=== PATIENT | male | born 1995 | race Caucasian/White ===

== ENCOUNTER → 2018-01-17 | Outpatient (CLI) | payer BC ==
--- NOTE | 2018-01-17 18:46 | DIAGNOSTIC IMAGING REPORT ---
MRI OF THE LEFT KNEE CLINICAL HISTORY: Left knee pain. Skiing injury. COMPARISON STUDY: MRI of the left knee dated 09/24/2011. TECHNIQUE: MRI of the left knee was performed utilizing proton density, T1, and T2-weighted sequences in the axial, sagittal, coronal planes. IV contrast was not administered for this examination. Note that interpretation is suboptimal without plain film correlate. FINDINGS: Menisci: There is linear signal within the posterior horn of the medial meniscus, best seen on sagittal image #5. This is clearly reach the articular surface and may represent intrasubstance tearing versus mucoid degeneration. The lateral meniscus is intact. Ligaments: There has been rupture of the anterior cruciate ligament. The posterior cruciate ligament is intact. There is a grade 2 injury of the medial collateral ligament. Fluid is seen on both sides of the ligament. The lateral collateral ligament complex appears preserved. Extensor mechanism: The extensor mechanism is intact. Hoffa's fat pad is normal in appearance. Articular cartilage and bone: The articular cartilage is intact and well maintained all 3 compartments. Large bony contusions identified within the lateral femoral condyle and the posterolateral tibial plateau. Bony contusion is also seen within the posteromedial tibial plateau with probable nondepressed fracture. A bone island is incidentally noted in the medial femoral condyle. Joint effusion: There is a moderate joint effusion. There is mild lipohemarthrosis. Soft tissues: Soft tissue edema is noted around the knee. The musculature surrounding the knee joint is normal in bulk. Intramuscular edema is noted within the bodies of popliteus and soleus. IMPRESSION: 1. There has been rupture of the anterior cruciate ligament. 2. There is grade 2 injury of the medial collateral ligament. 3. Linear signal is identified within the posterior horn of the medial meniscus, and does not clearly reach the articular surface. This could represent intrasubstance tearing versus mucoid degeneration. 4. The lateral meniscus, the lateral collateral ligament complex, and the posterior cruciate limits appear intact. 5. Bony contusions as above. Nondepressed fracture is suspected involving the posteromedial tibial plateau. 6. Moderate joint effusion with mild lipohemarthrosis. 7. Intramuscular edema is noted in the upper calf, and soft tissue edema is present around the knee. Electronically signed by: Bashir Ronquillo M.D. 01/17/2018 6:45 PM Dictated Date/Time: 01/17/2018 6:36 PM
== END | disposition home or self-care (01) ==
PROVIDERS: ATTEND Physical Medicine & Rehabilitation Sports Medicine
DX: S83.512A Sprain of anterior cruciate ligament of left knee, initial encounter (principal); S83.412A Sprain of medial collateral ligament of left knee, initial encounter; X58.XXXA Exposure to other specified factors, initial encounter

== ENCOUNTER → 2018-02-12 | Day surgery (SDC) | payer BC ==
[2018-02-04 07:59] VITALS: Ht 170.2 cm; Wt 81.8 kg
[~2018-02-12] VITALS: Ht 170.2 cm; Wt 81.8 kg
[~2018-02-12] MED LIST: ATROPINE SULFATE 0.1 MG/ML 5ML SYR IV PRN; CEFAZOLIN 2000MG IV PUSH 15 ML IV SCH; CEFTRIAXONE SOD 1 GM VIAL IV ONE; CEFTRIAXONE SOD 1 GM VIAL ONE; CEFTRIAXONE SOD 2 GM VIAL IV ONE; DEXAMETHASONE SOD INJ 4 MG/ML VIAL ONE; EpINEphrine HCL INJ 1 MG/ML 1ML SYRINGE ONE; FENTANYL CITRATE INJ 50 MCG/1 ML 2 ML VIAL ONE; IBUP-1050 PO; KETOROLAC TROMETHAMINE 30 MG/ML VIAL IV. PRN; KETOROLAC TROMETHAMINE 30 MG/ML VIAL ONE; LACTATED RINGER'S 1000ML 1,000 ML IV SCH; LIDOCAINE HCL 2% 2 ML VIAL (20MG/ML) ONE; MIDAZOLAM HCL 1 MG/ML 2ML VIAL ONE; ONDANSETRON INJ 2 MG/ML 2 ML VIAL IV PRN; ONDANSETRON INJ 2 MG/ML 2 ML VIAL ONE; OXYCODONE/ACETAMINOPHEN 5-325 TAB PO PRN; PROPOFOL IV EMULSION 10 MG/ML 20 ML VIAL IV ONE; ROPIVACAINE 0.5% 5 MG/ML 30 ML VIAL ONE; SODIUM CHLORIDE 0.9% 1000ML 1,000 ML IV SCH
--- NOTE | 2018-02-12 06:49 | History & Physical Bridge Note ---
H&P Re-Evaluation Bridge Note: I have examined the patient, reviewed the History & Physical and in the interval since the performance of the History & Physical I have noted the following changes of clinical significance:consent obtained. No changes noted
--- NOTE | 2018-02-12 06:50 | Discharge Instructions ---
Discharge Instructions Date of Service Feb 12, 2018. Visit Reason for Visit: Left Knee Acl Tear With Medial Meniscus Tear Discharge Discharge Diagnosis / Problem: same Discharge Goals Goal(s): Decrease discomfort, Improve function Medications Stopped Medications Name(s): na Restart Stopped Medication(s): use scripts as directed. Activity Recommendations Activity Limitations: as noted below Lifting Limitations: until after follow-up appointment Exercise/Sports Limitations: until after follow-up appointment May Resume Sexual Activity: after follow-up appointment Shower/Bathe: keep incision dry Driving or Machine Use: resume 3 days after discharge Weightbearing Status: Left weightbearing (as tolerated) Anesthesia . Post Anesthesia Instructions: If you have had General Anesthesia or IV Sedation: * Do not drive today. * Resume driving when surgeon permits. * Do not make important decisions or sign legal documents today. * Call surgeon for: 1. Temperature elevations greater than 101 degrees F. 2. Uncontrollable pain. 3. Excessive bleeding. 4. Persistent nausea and vomiting. 5. Medication intolerance (nausea, vomiting or rash). * For nausea and vomiting use only clear liquids such as: tea, soda, bouillon until nausea subsides, then gradually increase diet as tolerated. * If you have any concerns or questions, call your surgeon's office. If physician is unavailable and it is an emergency, call 911 or go to the nearest emergency room. . Diet Recommendations Recommended Home Diet: resume previous diet Procedures Procedures Performed: see op note Pending Studies Studies pending at discharge: no Medical Emergencies . Who to Call and When: Medical Emergencies: If at any time you feel your situation is an emergency, please call 911 immediately. . Non-Emergent Contact Non-Emergency issues call your: Specialist Call Non-Emergent contact if: wound has increased drainage, wound has increased redness, wound has increased pain . . "Provider Documentation" section prepared by Gigi Elder. .
--- NOTE | 2018-02-12 09:54 | [facility] Post Operative Brief Note ---
Immediate Operative Summary Operative Date Feb 12, 2018. Pre-Operative Diagnosis Left Knee Anterior Cruciate Ligament Tear Post-Operative Diagnosis Same Procedure(s) Performed Left Arthroscopic Anterior Cruciate Ligament Reconstruction With Patella Tendon Autograft Surgeon Dr. Elder Fixed Capital Clerk Surgeon(s) ADDIS Dias, Fellow Estimated Blood Loss 25 ml Findings Consistent with Post-Op Diagnosis Fluids (cc crystalloids) 1000cc Specimens None Drains None Anesthesia Type General Regional Complication(s) none Disposition Accompanied Pt To Recovery: no Disposition: Recovery Room / PACU
[2018-02-12] MEDS: FENTANYL CITRATE INJ 50 MCG/1 ML 2 ML VIAL IV PRN ×5 (10:21→10:54)
--- NOTE | 2018-02-12 10:58 | OPERATIVE REPORT ---
DATE OF OPERATION: 02/12/2018 SURGEON: Gigi Elder MD BAG ADJUSTER: Inder. SECOND BAG ADJUSTER: Faraz Card PA-C. PREOPERATIVE DIAGNOSIS: Anterior cruciate ligament tear, left knee, possible meniscus tear. POSTOPERATIVE DIAGNOSIS: Same. No meniscus tear. OPERATION PERFORMED: 1. Exam under anesthesia. 2. Diagnostic arthroscopy. 3. Endoscopic ACL reconstruction using central 1/3 patellar tendon autograft. PERIOPERATIVE SITUATION: Medically cleared male who injured his knee as a positive Luis Felipe, trace pivot and an MRI scan consistent with an ACL tear, question meniscus tear. PROCEDURE: The patient identified, site verified, consent verified, 2 grams of Ancef confirmed as being given. The knee was examined revealing positive Luis Felipe, trace pivot collateral and post-PCL were normal. Medial lateral collateral normal. Posterolateral corner normal. The leg was then prepped and draped in usual routine fashion. Tourniquet inflated to 275 mmHg after exsanguination of limb with a rubber Esmarch bandage for a total of approximately 67 minutes. An anteromedial incision was then made, full thickness flaps raised peritenon opened and the graft harvested being a 10 mm wide soft tissue, bone blocks being 30 x 10 x 5 off the tibia and 20 x 10 x 5 off the patella. They were then tagged with #2 Ethibond on the tibia and an Arthrex TightRope on the patella. It was then placed in a sterile specimen container. They fit through 10 mm tunnel. The knee was then scoped with the inframedial and inferolateral portals made through the harvest site. Inspection of the joint revealed healthy articular surfaces of the lateral compartment. Lateral meniscus normal. The ACL was torn, tight notch stump debrided, the medial meniscus had no findings. Some minor scuffing of the medial articular surface nothing full thickness. A small area of 0.5 cm2 area on the most medial aspect of the medial condyle and then the patellofemoral joint was healthy. A limited notchplasty was performed. The stump of the ACL debrided. Tibial guide seated and the guide pin passed and then the center of the footprint a 10 mm socket made. All bone debris removed. The stump of the ACL attachment was left attached to the femur and the footprint was used as a sizing device, the guide placed there and a 10 mm socket made there 25 mm thick. All bone debris removed. The graft was then passed and shuttled and secured on the femur with a TightRope with excellent purchase and then on the tibia with 2 jimy, a trough was then cut. Then, they stapled in with Arthrex jimy. They were 8 mm. Excellent fixation was obtained. The graft had good tension. There was full hyperextension and full flexion. The wound was then irrigated and then closed. Bone trimming was used to graft the patellar harvest site, peritenon closed with 2-0 Vicryl, the deep fascia with 0 Vicryl, subcutaneous layer with 2-0 plain and the skin with running subcuticular 2-0 Prolene. Appropriate dressing applied. Brace applied. The patient transferred to holding area/recovery room in satisfactory condition having tolerated the procedure well. DVT prophylaxis with aspirin. ESTIMATED BLOOD LOSS: 25 mL. CRYSTALLOID: 1000 mL. I attest to the content of the Intraoperative Record and any orders documented therein. Any exceptions are noted below. MTDD
--- NOTE | 2018-02-12 11:43 | Anesthesia Progress Nt - [facility] ---
Anesthesia Post Op Note Date & Time Feb 12, 2018 at 11:42 Vital Signs Pain Intensity: 3.0 Vital Signs Past 12 Hours Date Time Temp Pulse Resp B/P (MAP) Pulse Ox O2 Delivery O2 Flow Rate FiO2 02/12/18 11:14 93 16 157/93 (114) 95 Room Air 02/12/18 11:05 36.3 95 13 150/98 95 Room Air 02/12/18 11:05 150/98 02/12/18 11:04 99 14 02/12/18 11:04 100 14 155/94 95 02/12/18 11:00 155/100 02/12/18 10:59 102 15 96 02/12/18 10:59 102 15 02/12/18 10:55 167/94 02/12/18 10:54 103 15 94 02/12/18 10:54 103 15 02/12/18 10:50 154/97 02/12/18 10:49 103 17 94 02/12/18 10:49 103 17 02/12/18 10:45 151/95 02/12/18 10:44 103 14 95 02/12/18 10:44 103 14 02/12/18 10:41 170/91 02/12/18 10:40 181/101 02/12/18 10:39 98 12 96 02/12/18 10:39 98 12 02/12/18 10:35 159/98 02/12/18 10:34 95 14 96 02/12/18 10:34 96 14 02/12/18 10:33 162/91 02/12/18 10:30 169/102 02/12/18 10:29 98 14 98 02/12/18 10:29 97 14 02/12/18 10:25 164/101 02/12/18 10:24 108 15 02/12/18 10:24 109 15 95 02/12/18 10:20 149/101 02/12/18 10:19 108 15 02/12/18 10:19 107 15 97 02/12/18 10:16 157/102 02/12/18 10:14 103 15 98 02/12/18 10:14 103 15 02/12/18 10:11 144/99 02/12/18 10:10 36.3 110 16 158/103 98 Mask 6 02/12/18 10:10 158/103 02/12/18 08:19 0 02/12/18 08:18 0 02/12/18 08:17 86 28 02/12/18 08:15 148/76 02/12/18 08:12 84 02/12/18 08:12 86 21 98 02/12/18 08:11 81 02/12/18 08:11 81 20 98 02/12/18 08:10 140/94 02/12/18 08:07 88 27 99 02/12/18 08:07 88 02/12/18 08:06 99 26 100 02/12/18 08:06 100 02/12/18 08:05 159/96 02/12/18 08:03 86 0 137/102 97 02/12/18 08:03 85 02/12/18 07:58 88 0 96 02/12/18 07:58 86 02/12/18 07:53 79 0 02/12/18 07:48 74 0 02/12/18 07:43 81 0 02/12/18 07:38 77 0 02/12/18 07:33 81 0 02/12/18 07:28 23 02/12/18 07:28 23 02/12/18 06:52 36.8 75 20 151/85 (107) 94 Room Air Notes Mental Status: alert / awake / arousable, participated in evaluation Pt Amnestic to Procedure: Yes Nausea / Vomiting: adequately controlled Pain: adequately controlled Airway Patency, RR, SpO2: stable & adequate BP & HR: stable & adequate Hydration State: stable & adequate Anesthetic Complications: no major complications apparent
[2018-02-12 11:47] VITALS: TEMP 36.6
[2018-02-12 12:07] VITALS: BP 154/94; PULSE 98; O2SAT 96
--- NOTE | 2018-02-12 19:40 | [facility] Operative Report ---
Operative Report Operative Date Feb 12, 2018. Pre-Operative Diagnosis Left Knee Anterior Cruciate Ligament Tear Post-Operative Diagnosis Left knee same Procedure(s) Performed Left Arthroscopic Anterior Cruciate Ligament Reconstruction With Patella Tendon Autograft Surgeon Dr. Elder Business Support Associate Surgeon(s) ADDIS Dias, Fellow Estimated Blood Loss 25 ml Findings Left knee ACL tear Fluids 1000cc Specimens None Drains None Anesthesia Type General Regional Complication(s) none Disposition no Recovery Room / PACU Indications This 22-year-old white male presented to the office with complaints of left knee instability after injuring himself while skiing in [place]. Preoperative imaging was obtained. He elected to proceed with surgical intervention after being educated about potential risks and outcomes. No prior history of knee instability. Description of Procedure Patient was administered a regional block and then taken to the operating room where he was given general anesthesia. He was prepped and draped in usual sterile fashion. Please see Dr. Elder's operative report for specifics of the procedure. I was present for the entire case from initial patient positioning through final wound closure. Assistance was provided in tissue retraction, hemostasis, graft harvest, graft placement, hardware placement, arthroscopy, and final wound closure. Patient was taken to the recovery room in satisfactory condition. I attest to the content of the Intraoperative Record and any orders documented therein. Any exceptions are noted below.
== END | disposition home or self-care (01) ==
LOC: X.SURG 06:44
PROVIDERS: ATTEND Physical Medicine & Rehabilitation Sports Medicine
DX: S83.512A Sprain of anterior cruciate ligament of left knee, initial encounter (principal); Z82.49 Family history of ischemic heart disease and other diseases of the circulatory system; Z83.3 Family history of diabetes mellitus; X58.XXXA Exposure to other specified factors, initial encounter; Y93.23 Activity, snow (alpine) (downhill) skiing, snowboarding, sledding, tobogganing and snow tubing; Y92.838 Other recreation area as the place of occurrence of the external cause

== ENCOUNTER → 2018-03-25 | Outpatient (CLI) | payer BC ==
[~2018-03-25] MED LIST changes: -ATROPINE SULFATE 0.1 MG/ML 5ML SYR IV PRN; -CEFAZOLIN 2000MG IV PUSH 15 ML IV SCH; -CEFTRIAXONE SOD 1 GM VIAL IV ONE; -CEFTRIAXONE SOD 1 GM VIAL ONE; -CEFTRIAXONE SOD 2 GM VIAL IV ONE; -DEXAMETHASONE SOD INJ 4 MG/ML VIAL ONE; -EpINEphrine HCL INJ 1 MG/ML 1ML SYRINGE ONE; -FENTANYL CITRATE INJ 50 MCG/1 ML 2 ML VIAL ONE; -KETOROLAC TROMETHAMINE 30 MG/ML VIAL IV. PRN; -KETOROLAC TROMETHAMINE 30 MG/ML VIAL ONE; -LACTATED RINGER'S 1000ML 1,000 ML IV SCH; -LIDOCAINE HCL 2% 2 ML VIAL (20MG/ML) ONE; -MIDAZOLAM HCL 1 MG/ML 2ML VIAL ONE; -ONDANSETRON INJ 2 MG/ML 2 ML VIAL IV PRN; -ONDANSETRON INJ 2 MG/ML 2 ML VIAL ONE; -OXYCODONE/ACETAMINOPHEN 5-325 TAB PO PRN; -PROPOFOL IV EMULSION 10 MG/ML 20 ML VIAL IV ONE; -ROPIVACAINE 0.5% 5 MG/ML 30 ML VIAL ONE; -SODIUM CHLORIDE 0.9% 1000ML 1,000 ML IV SCH
--- NOTE | 2018-03-25 10:06 | DIAGNOSTIC IMAGING REPORT ---
LEFT KNEE 2 VIEWS HISTORY: F/U LEFT KNEE SURGERY COMPARISON: Left knee 09/21/2011. FINDINGS: There is no fracture or dislocation. Small joint effusion. Status post ACL repair. The hardware appears intact. Bone harvesting site at the tibial tubercle. Cartilage spaces are maintained for age. IMPRESSION: 1. Small left knee effusion. 2. No fractures. 3. ACL repair. The hardware appears intact. Electronically signed by: Mark Rey M.D. 03/25/2018 10:05 AM Dictated Date/Time: 03/25/2018 10:02 AM
== END | disposition home or self-care (01) ==
LOC: C.RDSM 09:52
PROVIDERS: ATTEND Physician Assistant
DX: Z09 Encounter for follow-up examination after completed treatment for conditions other than malignant neoplasm (principal); M25.462 Effusion, left knee